=== PATIENT | female | born 1950 | race Caucasian/White ===

== ENCOUNTER 2020-01-25 11:11 | Emergency (ER) | payer SELFPAY ==
[~2020-01-25] VITALS: Ht 152.4 cm; Wt 59.0 kg
[2020-01-25] MEDS ORDERED: NITROGLYCERIN SUBLINGUAL 0.4 MG BOTTLE OF 25. SL PRN (11:30)
[2020-01-25] MEDS ORDERED: ASPIRIN 325 MG TABLET PO ONE (11:30)
[2020-01-25] MEDS ORDERED: MORPHINE SULFATE 4 MG/ML VIAL. IV/SQ PRN (11:30)
[2020-01-25] MEDS ORDERED: IV NORMAL SALINE 1000ML BAG 1,000 ML IV ONE (11:45)
[2020-01-25 11:49] LABS: BASO % 1 % (0-3); EOS % 1 % (0-3); HEMATOCRIT 36.4 % (36.0-47.0); HEMOGLOBIN 12.6 g/dL (12.0-15.5); LYMPH # 1.6 x10^3/uL (1.0-4.8); LYMPH % 33 % (24-48); MEAN CORPUSCULAR HEMOGLOBIN 33 pg (25-35); MEAN CORPUSCULAR HGB CONC 35 g/dL (31-37); MEAN CORPUSCULAR VOLUME 95 fL (79-100); MONO # 0.5 x10^3/uL (0.0-1.1); MONO % 10 % (0-9); NEUT # 2.7 x10^3/uL (1.8-7.7); NEUT % 56 % (31-73); PLATELET COUNT 338 x10^3/uL (140-400); RED BLOOD COUNT 3.83 x10^6/uL (3.50-5.40); RED CELL DISTRIBUTION WIDTH 14.2 % (11.5-14.5); WHITE BLOOD COUNT 4.9 x10^3/uL (4.0-11.0)
[2020-01-25 11:55] LABS: PROTHROMBIN TIME PATIENT 13.5 SEC (11.7-14.0)
--- NOTE | 2020-01-25 11:55 | RAD ---
EXAM: CT HEAD WITHOUT CONTRAST. HISTORY: Altered mental status. TECHNIQUE: Computed tomography of the head was performed without intravenous contrast. One or more of the following individualized dose reduction techniques were utilized for this examination: 1. Automated exposure control. 2. Adjustment of the mA and/or kV according to patient size. 3. Use of iterative reconstruction technique. COMPARISON: None. FINDINGS: There is no intracranial hemorrhage. Hypoattenuation within the white matter indicates moderate chronic microangiopathic change. The ventricles are normal in size and position. The visualized paranasal sinuses appear clear. The orbits are unremarkable. The temporal bones are unremarkable. The calvarium reveals no suspicious lesions. IMPRESSION: 1. No acute intracranial findings. 2. Moderate chronic microangiopathic white matter change. Electronically signed by: Oralia Vizcarra MD (01/25/2020 11:52 AM) [id number]
[2020-01-25 11:58] LABS: CALCIUM 8.1 mg/dL (8.5-10.1); CREATININE 1.1 mg/dL (0.6-1.0); GFR 49.4; POTASSIUM 3.4 mmol/L (3.5-5.1)
[2020-01-25 12:04] LABS: ALBUMIN 2.9 g/dL (3.4-5.0); ALBUMIN/GLOBULIN RATIO 0.8 (1.0-1.7); MAGNESIUM 1.5 mg/dL (1.8-2.4); TOTAL BILIRUBIN 0.4 mg/dL (0.2-1.0); TOTAL PROTEIN 6.5 g/dL (6.4-8.2)
[2020-01-25 12:13] LABS: CREATINE KINASE 38 U/L (26-192)
--- NOTE | 2020-01-25 12:26 | PHYS DOC ---
Past Medical History Past Medical History: COPD Past Surgical History: Appendectomy Smoking Status: Current Every Day Smoker Alcohol Use: None Drug Use: None General Adult EDM: Chief Complaint: CHEST PAIN HPI: HPI: Patient is a 69 year old female current smoker with history of COPD who presents to the ED today with multiple complaints. Patient is a very poor historian. I got report from the RN who states patient's family specifically daughter reported patient has been leaning towards her left side for unknown period of time. Patient reports this is her normal way of ambulation and there is nothing new about it. Patient also states she has had multiple falls and has chronic low back pain currently rated at 8 out of 10 described as throbbing and intermittent. Denies anything specifically relieving the pain but states palpating the low back exacerbates the pain. Denies any pain radiating to bilateral lower extremities. Denies any loss of bowel/bladder function. Patient also reports she has a dry cough and decreased appetite. Patient denies any chest pain or shortness of breath. Review of Systems: Review of Systems: Constitutional: Reports decreased appetite. Denies fever or chills. [] Eyes: Denies change in visual acuity. [] HENT: Denies nasal congestion or sore throat. [] Respiratory: Reports cough, denies shortness of breath. [] Cardiovascular: Denies chest pain or edema. [] GI: Denies abdominal pain, nausea, vomiting, bloody stools or diarrhea. [] : Denies dysuria. [] Musculoskeletal: Reports back pain Integument: Denies rash. [] Neurologic: Reports leaning to the left. Denies headache, focal weakness or sensory changes. [] Endocrine: Denies polyuria or polydipsia. [] Lymphatic: Denies swollen glands. [] Psychiatric: Denies depression or anxiety. [] Heart Score: Risk Factors: Risk Factors: DM, Current or recent (<one month) smoker, HTN, HLP, family history of CAD, obesity. Risk Scores: Score 0 - 3: 2.5% MACE over next 6 weeks - Discharge Home Score 4 - 6: 20.3% MACE over next 6 weeks - Admit for Clinical Observation Score 7 - 10: 72.7% MACE over next 6 weeks - Early Invasive Strategies Current Medications: Current Medications Medications (Trade) Dose Ordered Sig/[place] Start Time Stop Time Status Last Admin Dose Admin Aspirin (Raisa Aspirin) 325 mg 1X ONCE 01/25/20 11:30 01/25/20 11:34 DC Morphine Sulfate (Morphine Sulfate) 4 mg PRN Q15MIN PRN 01/25/20 11:30 01/26/20 11:29 Nitroglycerin (Nitrostat) 0.4 mg PRN Q5MIN PRN 01/25/20 11:30 01/26/20 11:29 Sodium Chloride 1,000 ml @ 1,000 mls/hr 1X ONCE 01/25/20 11:45 01/25/20 12:44 Allergies: Allergies: Allergies Coded Allergies Type Severity Reaction Last Updated Verified No Known Drug Allergies 10/10/14 No Physical Exam: PE: Constitutional: Well developed, well nourished, no acute distress, non-toxic appearance. [] HENT: Normocephalic, atraumatic, bilateral external ears normal, oropharynx moist, no oral exudates, nose normal. [] Eyes: PERRLA, EOMI, conjunctiva normal, no discharge. [] Neck: Normal range of motion, no tenderness, supple, no stridor. [] Cardiovascular:Heart rate regular rhythm, no murmur [] Lungs & Thorax: Bilateral breath sounds clear to auscultation [] Abdomen: Bowel sounds normal, soft, no tenderness, no masses, no pulsatile masses. [] Skin: Jaundice appearing skin. Warm, dry, no erythema, no rash. [] Back: No tenderness, no CVA tenderness. [] Extremities: mild bilateral lumbar tenderness no midline lumbar spine tenderness, no cyanosis, no clubbing, ROM intact, no edema. [] Neurologic: Alert and oriented X 3, normal motor function, normal sensory function, no focal deficits noted. [] Psychologic: Affect normal, judgement normal, mood normal. [] Current Patient Data: Labs: Laboratory Tests Test 01/25/20 11:32 White Blood Count 4.9 x10^3/uL (4.0-11.0) Red Blood Count 3.83 x10^6/uL (3.50-5.40) Hemoglobin 12.6 g/dL (12.0-15.5) Hematocrit 36.4 % (36.0-47.0) Mean Corpuscular Volume 95 fL (79-100) Mean Corpuscular Hemoglobin 33 pg (25-35) Mean Corpuscular Hemoglobin Concent 35 g/dL (31-37) Red Cell Distribution Width 14.2 % (11.5-14.5) Platelet Count 338 x10^3/uL (140-400) Neutrophils (%) (Auto) 56 % (31-73) Lymphocytes (%) (Auto) 33 % (24-48) Monocytes (%) (Auto) 10 % (0-9) H Eosinophils (%) (Auto) 1 % (0-3) Basophils (%) (Auto) 1 % (0-3) Neutrophils # (Auto) 2.7 x10^3/uL (1.8-7.7) Lymphocytes # (Auto) 1.6 x10^3/uL (1.0-4.8) Monocytes # (Auto) 0.5 x10^3/uL (0.0-1.1) Eosinophils # (Auto) 0.0 x10^3/uL (0.0-0.7) Basophils # (Auto) 0.0 x10^3/uL (0.0-0.2) Prothrombin Time 13.5 SEC (11.7-14.0) Prothrombin Time INR 1.1 (0.8-1.1) Sodium Level 131 mmol/L (136-145) L Potassium Level 3.4 mmol/L (3.5-5.1) L Chloride Level 97 mmol/L (98-107) L Carbon Dioxide Level 24 mmol/L (21-32) Anion Gap 10 (6-14) Blood Urea Nitrogen 7 mg/dL (7-20) Creatinine 1.1 mg/dL (0.6-1.0) H Estimated GFR (Cockcroft-Gault) 49.4 BUN/Creatinine Ratio 6 (6-20) Glucose Level 111 mg/dL (70-99) H Calcium Level 8.1 mg/dL (8.5-10.1) L Magnesium Level 1.5 mg/dL (1.8-2.4) L Total Bilirubin 0.4 mg/dL (0.2-1.0) Aspartate Amino Transferase (AST) 17 U/L (15-37) Alanine Aminotransferase (ALT) 23 U/L (14-59) Alkaline Phosphatase 130 U/L (46-116) H Creatine Kinase 38 U/L (26-192) Creatine Kinase MB (Mass) 1.9 ng/mL (0.0-3.6) Creatine Kinase MB Relative Index % (0-4) Troponin I Quantitative < 0.017 ng/mL (0.000-0.055) FU-Gzc-C-Type Natriuretic Peptide 375 pg/mL (0-124) H Total Protein 6.5 g/dL (6.4-8.2) Albumin 2.9 g/dL (3.4-5.0) L Albumin/Globulin Ratio 0.8 (1.0-1.7) L Thyroid Stimulating Hormone (TSH) 0.038 uIU/mL (0.358-3.74) L Laboratory Tests 01/25/20 11:32 Laboratory Tests 01/25/20 11:32 Vital Signs: Vital Signs Date Time Temp Pulse Resp B/P (MAP) Pulse Ox O2 Delivery O2 Flow Rate FiO2 01/25/20 11:13 98.4 112 20 109/62 (78) 99 Room Air 98.4 EKG: EKG: [] Radiology/Procedures: Radiology/Procedures: []PROCEDURE: CT HEAD WO CONTRAST EXAM: CT HEAD WITHOUT CONTRAST. HISTORY: Altered mental status. TECHNIQUE: Computed tomography of the head was performed without intravenous contrast. One or more of the following individualized dose reduction techniques were utilized for this examination: 1. Automated exposure control. 2. Adjustment of the mA and/or kV according to patient size. 3. Use of iterative reconstruction technique. COMPARISON: None. FINDINGS: There is no intracranial hemorrhage. Hypoattenuation within the white matter indicates moderate chronic microangiopathic change. The ventricles are normal in size and position. The visualized paranasal sinuses appear clear. The orbits are unremarkable. The temporal bones are unremarkable. The calvarium reveals no suspicious lesions. IMPRESSION: 1. No acute intracranial findings. 2. Moderate chronic microangiopathic white matter change. Electronically signed by: Oralia Vizcarra MD (01/25/2020 11:52 AM) [id number] DICTATED and SIGNED BY: USMAN VIZCARRA MD DATE: 01/25/20 1152 1. CHEST ONE VIEW. 2. LUMBAR SPINE 3 VIEWS. HISTORY: Chest and low back pain. Fall. COMPARISON: None. FINDINGS: There are no confluent infiltrates. There are calcified granulomas bilaterally. There is no pneumothorax or pleural effusion. The heart is not enlarged. Calcified lymph nodes likely reflect old granulomatous disease. A mild superior plate compression deformity at L2 results in 20% loss of anterior vertebral body height. This is age indeterminate but is most likely chronic. Mild wedging at the superior plate of T12 is likely developmental. Osteopenia appears moderate. Intervertebral disc heights are maintained. Facet osteoarthritis is at least mild from L4 through S1. IMPRESSION: 1. No confluent infiltrates. 2. A mild superior endplate compression deformity at L2 is most likely chronic. Correlate for focal tenderness to differentiate. Electronically signed by: Oralia Vizcarra MD (01/25/2020 12:55 PM) [id number] DICTATED and SIGNED BY: USMAN VIZCARRA MD DATE: 01/25/20 0031 Course & Med Decision Making: Course & Med Decision Making Pertinent Labs and Imaging studies reviewed. (See chart for details) This is a 69-year-old female patient presenting to the ED today from home with reports of leaning towards the left side when she ambulates. Patient denies this being something new but family reported is a new finding but has been going on for more than 3 days. Patient herself reports low back pain and multiple falls. She also reports decreased appetite and a cough. Chest x-ray interpreted by radiologist is negative for any acute findings, CT of the head is negative. Lumbar spine x-rays interpreted by radiologist were noted for chronic L2 endplate compression fracture. Labs are negative for any significant acute findings. I spoke to patient and daughter who are present in the room at discharge. Daughter was requesting patient to be admitted. Patient herself is refusing to be admitted. She states she will walk out and go to her own apartment if we want to keep her. Patient is also requesting to go outside and smoke. Informed patient this is a non-smoking facility. Patient states she has an appointment with her PCP tomorrow. Requested daughter to follow-up on this appointment considering daughter was stating patient has been saying she has an appointment every day. Patient is alert oriented and answering orientation questions appropriately. She was provided return precautions and discharged in stable condition. Maryon Disclaimer: [place] Disclaimer: This electronic medical record was generated, in whole or in part, using a voice recognition dictation system. Departure Departure Impression: Primary Impression: Fall Qualified Codes: W19.XXXA - Unspecified fall, initial encounter Additional Impressions: Back pain Qualified Codes: M54.5 - Low back pain; G89.29 - Other chronic pain Compression fracture of L2 lumbar vertebra Qualified Codes: S32.020A - Wedge compression fracture of second lumbar vertebra, initial encounter for closed fracture Smoking addiction Disposition: 01 HOME, SELF-CARE Condition: STABLE Referrals: HAI GALAVIZ MD (PCP) follow up as soon as possible SABINO THAYER MD follow up in 1 week Patient Instructions: Back, Compression Fracture, Cough, Adult, [id number], Fall Prevention and Home Safety Additional Instructions: You were evaluated in the emergency room, your CAT scan of the head is negative for any acute findings. Your back x-ray shows you have a chronic L2 fracture. We provided you a neurosurgeon, follow-up with them in 1 to 2 weeks. Also follow-up with your own primary care doctor. Scripts Cyclobenzaprine Hcl (CYCLOBENZAPRINE HCL) 10 Mg Tablet 1 TAB PO TID, #30 TAB Prov: CHEYENNE MC APRN 01/25/20 Justicifation of Admission Dx: Justifications for Admission: Justification of Admission Dx: N/A CHEYENNE MC APRN Jan 25, 2020 12:26
[2020-01-25 12:27] LABS: C-REACTIVE PROTEIN 0.6 mg/L (0-3.3)
--- NOTE | 2020-01-25 12:58 | RAD ---
EXAM: 1. CHEST ONE VIEW. 2. LUMBAR SPINE 3 VIEWS. HISTORY: Chest and low back pain. Fall. COMPARISON: None. FINDINGS: There are no confluent infiltrates. There are calcified granulomas bilaterally. There is no pneumothorax or pleural effusion. The heart is not enlarged. Calcified lymph nodes likely reflect old granulomatous disease. A mild superior plate compression deformity at L2 results in 20% loss of anterior vertebral body height. This is age indeterminate but is most likely chronic. Mild wedging at the superior plate of T12 is likely developmental. Osteopenia appears moderate. Intervertebral disc heights are maintained. Facet osteoarthritis is at least mild from L4 through S1. IMPRESSION: 1. No confluent infiltrates. 2. A mild superior endplate compression deformity at L2 is most likely chronic. Correlate for focal tenderness to differentiate. Electronically signed by: Oralia Vizcarra MD (01/25/2020 12:55 PM) [id number]
[2020-01-25 13:25] LABS: BILIRUBIN,URINE NEGATIVE (NEG); CLARITY,URINE CLEAR; COLOR,URINE YELLOW; NITRITE,URINE NEGATIVE (NEG); PROTEIN,URINE NEGATIVE (NEG-TRACE)
[2020-01-25 13:36] LABS: AMPHETAMINE/METHAMPHETAMINE NEG (NEG); BARBITURATES NEG (NEG); BENZODIAZEPINES NEG (NEG); CANNABINOIDS NEG (NEG); COCAINE NEG (NEG); METHADONE NEG (NEG); OPIATES POS (NEG); PHENCYCLIDINE NEG (NEG)
[2020-01-25 13:49] LABS: AMORPHOUS SEDIMENT,UR PRESENT /HPF; BACTERIA,URINE 0 /HPF (0-FEW); RBC,URINE 0 /HPF (0-2); WBC,URINE RARE /HPF (0-4)
[2020-01-25 14:20] VITALS: BP 153/61
[2020-01-25] MEDS ORDERED: CYCL10TA2 PO (14:21)
--- NOTE | 2020-01-26 07:53 | EKG ---
[facility] [address] [place] [address] Test Date: 2020-01-25 Test Time: 11:18:37 Pat Name: HIRA CALLOWAY Department: Room: Gender: F Pipe Inspector: : 1950 Requested By: CHEYENNE MC Order Number: [id number] Reading MD: Measurements Intervals [place] Rate: 118 P: 58 WA: 146 QRS: 39 QRSD: 84 T: 69 QT: 310 QTc: 437 Interpretive Statements SINUS TACHYCARDIA NO SPECIFIC ECG ABNORMALITIES RI6.02 No previous ECG available for comparison
== END 2020-01-25 14:28 | disposition home or self-care (01) ==
LOC: ER 11:11
DX: S32.020A Wedge compression fracture of second lumbar vertebra, initial encounter for closed fracture (principal); G89.29 Other chronic pain; M54.5 Low back pain; R05 Cough; J44.9 Chronic obstructive pulmonary disease, unspecified; F17.200 Nicotine dependence, unspecified, uncomplicated; Z90.89 Acquired absence of other organs; W18.39XA Other fall on same level, initial encounter; Y93.89 Activity, other specified; Y92.89 Other specified places as the place of occurrence of the external cause; Y99.8 Other external cause status
CPT/HCPCS: 36415; 70450; 71045; 72100; 80053; 80307; 81001; 82553; 82728; 83605; 83690; 83735; 83880; 84145; 84443; 84484; 85025; 85610; 86140; 93005; 96361; 96374; 99285; J2270; J7030

== ENCOUNTER 2020-04-13 10:51 | Emergency (ER) | payer MEDICARE, OTHER ==
[~2020-04-13] VITALS: Ht 157.5 cm; Wt 45.0 kg
[~2020-04-13 10:51] MED LIST: ALEN70TA60 PO; APIX5TAB PO; CYCL10TA2 PO; MIRT-36 PO; PANT40TA77 PO; QUET400T4 PO
--- NOTE | 2020-04-13 12:56 | PHYS DOC ---
Past Medical History Past Medical History: COPD, GERD, Other Additional Past Medical Histor: OSTEOPOROSIS Past Surgical History: Appendectomy Smoking Status: Current Every Day Smoker Alcohol Use: None Drug Use: None General Adult EDM: Chief Complaint: LOWER EXTREMITY SWELLING HPI: HPI: History obtained from patient. Patient is a 70-year-old female with recent diagnosis of pulmonary embolism who presents with chief complaint of bilateral foot and ankle swelling. She notes that the swelling has been present since she left the hospital 2 weeks ago AGAINST MEDICAL ADVICE. States she left because they would not let her eat food. She notes that her daughter encouraged her to come to the emergency department so she acquiesced. She denies any fevers. Does note a mild dry cough. Denies any orthopnea or bendopnea. Has been taking Eliquis daily without missed doses. Does note she has follow-up point with her primary care doctor in 2 days. Denies chest pain. Does report good urinary output. Denies abdominal pain. Denies history of heart failure. States these foot swelling has not gotten neither better nor worse. Denies syncope. No other complaints. Review of Systems: Review of Systems: Constitutional: Denies fever or chills. [] Eyes: Denies change in visual acuity. [] HENT: Denies nasal congestion or sore throat. [] Respiratory: Denies cough or shortness of breath. [] Cardiovascular: Positive for edema GI: Denies abdominal pain, nausea, vomiting, bloody stools or diarrhea. [] : Denies dysuria. [] Musculoskeletal: Denies back pain or joint pain. [] Integument: Denies rash. [] Neurologic: Denies headache, focal weakness or sensory changes. [] Endocrine: Denies polyuria or polydipsia. [] Lymphatic: Denies swollen glands. [] Psychiatric: Denies depression or anxiety. [] Heart Score: Risk Factors: Risk Factors: DM, Current or recent (<one month) smoker, HTN, HLP, family history of CAD, obesity. Risk Scores: Score 0 - 3: 2.5% MACE over next 6 weeks - Discharge Home Score 4 - 6: 20.3% MACE over next 6 weeks - Admit for Clinical Observation Score 7 - 10: 72.7% MACE over next 6 weeks - Early Invasive Strategies Allergies: Allergies: Allergies Coded Allergies Type Severity Reaction Last Updated Verified No Known Drug Allergies 03/22/20 No Physical Exam: PE: Constitutional: Well developed, well nourished, no acute distress, non-toxic appearance. [] HENT: Normocephalic, atraumatic, bilateral external ears normal, oropharynx moist, no oral exudates, nose normal. [] Eyes: PERRLA, EOMI, conjunctiva normal, no discharge. [] Neck: Normal range of motion, no tenderness, supple, no stridor. [] Cardiovascular: +1-4 pitting edema in the lower extremities bilaterally. Lungs & Thorax: Bilateral breath sounds clear to auscultation [] Abdomen: soft, no tenderness, no masses, no pulsatile masses. [] Skin: Warm, dry, no erythema, no rash. [] Back: No tenderness, no CVA tenderness. [] Extremities: No tenderness, no cyanosis, no clubbing, ROM intact, no edema. [] Neurologic: Alert and oriented X 3, normal motor function, normal sensory function, no focal deficits noted. [] Psychologic: Affect normal, judgement normal, mood normal. [] Current Patient Data: Labs: Laboratory Tests Test 04/13/20 13:03 04/13/20 13:27 White Blood Count 4.5 x10^3/uL Red Blood Count 3.16 x10^6/uL Hemoglobin 11.0 g/dL Hematocrit 32.4 % Mean Corpuscular Volume 103 fL Mean Corpuscular Hemoglobin 35 pg Mean Corpuscular Hemoglobin Concent 34 g/dL Red Cell Distribution Width 17.0 % Platelet Count 343 x10^3/uL Neutrophils (%) (Auto) 56 % Lymphocytes (%) (Auto) 36 % Monocytes (%) (Auto) 7 % Eosinophils (%) (Auto) 0 % Basophils (%) (Auto) 1 % Neutrophils # (Auto) 2.5 x10^3/uL Lymphocytes # (Auto) 1.6 x10^3/uL Monocytes # (Auto) 0.3 x10^3/uL Eosinophils # (Auto) 0.0 x10^3/uL Basophils # (Auto) 0.0 x10^3/uL Sodium Level 128 mmol/L Potassium Level 4.2 mmol/L Chloride Level 95 mmol/L Carbon Dioxide Level 27 mmol/L Anion Gap 6 Blood Urea Nitrogen 6 mg/dL Creatinine 0.5 mg/dL Estimated GFR (Cockcroft-Gault) 122.3 Glucose Level 98 mg/dL Calcium Level 8.5 mg/dL HL-Vnu-Q-Type Natriuretic Peptide 2202 pg/mL Urine Collection Type Unknown Urine Color Straw Urine Clarity Clear Urine pH 7.5 Urine Specific [place] <=1.005 Urine Protein Negative mg/dL Urine Glucose (UA) Negative mg/dL Urine Ketones (Stick) Negative mg/dL Urine Blood Negative Urine Nitrite Negative Urine Bilirubin Negative Urine Urobilinogen Dipstick 0.2 mg/dL Urine Leukocyte Esterase Negative Urine RBC Rare /HPF Urine WBC Rare /HPF Urine Squamous Epithelial Cells Few /LPF Urine Bacteria 0 /HPF Vital Signs: Vital Signs Date Time Temp Pulse Resp B/P (MAP) Pulse Ox O2 Delivery O2 Flow Rate FiO2 04/13/20 12:45 98.1 110 20 209/90 (129) 99 Room Air 98.1 EKG: EKG: EKG consistent with sinus tachycardia. Ventricular rate of 104 bpm. Slight left axis noted. Left atrial enlargement appreciated. No acute ischemic changes noted. [] Radiology/Procedures: Radiology/Procedures: [facility] [address] [place] [address] IMAGING REPORT Signed PATIENT: HIRA CALLOWAY ACCOUNT: [id number] : 1950 LOCATION: ER AGE: 70 SEX: F EXAM STATUS: REG ER ORD. PHYSICIAN: TANK TRISTAN DO REASON: LE swelling PROCEDURE: CHEST AP ONLY EXAM: Chest, single view. HISTORY: Swelling. COMPARISON: 01/25/2020 FINDINGS: A frontal view of the chest is obtained. There is no infiltrate, pleural effusion or pneumothorax. There is a stable cardiac silhouette. There are multiple calcified granulomas. IMPRESSION: No acute pulmonary finding. Electronically signed by: Daina Sam MD (04/13/2020 12:55 PM) [id number] DICTATED and SIGNED BY: DANIA SAM MD DATE: 04/13/20 1255 [] Course & Med Decision Making: Course & Med Decision Making Pertinent Labs and Imaging studies reviewed. (See chart for details) [] Patient is a [age]-year-old female who presents with chief complaint of bilateral lower extremity swelling. She knows she is really diagnosed with bilateral pulmonary emboli. She did leave the hospital that time AGAINST MEDICAL ADVICE. Repeat labs today do show elevation of proBNP from baseline. No recent echo on file. Lower extremity Dopplers negative for DVT. Remainder of labs unremarkable. I did recommend hospitalization for echocardiogram for further evaluation of her heart function. At this time she is declining would like to leave AGAINST MEDICAL ADVICE. I did explain that we cannot fully exclude life or limb threat without this test. Patient did express understanding. She is alert and oriented x3. Patient clinically sober. Does appear to have basic understanding of her health care needs and potential consequences. She does have an appoint with her primary care doctor in 2 days. I highly encouraged her to keep this appointment. I encouraged her to report back to the emergency department anytime should she want to be reevaluated. She continues to deny any chest pain. Will be leaving AGAINST MEDICAL ADVICE at this time [place]in Disclaimer: [place] Disclaimer: This electronic medical record was generated, in whole or in part, using a voice recognition dictation system. Departure Departure Impression: Primary Impression: Pulmonary emboli Qualified Codes: I27.82 - Chronic pulmonary embolism Additional Impression: Elevated brain natriuretic peptide (BNP) level Disposition: 07 AMA/ELOPED/LWBS Condition: STABLE Referrals: ULI DAVIS MD (PCP) Patient Instructions: Pulmonary Embolus Additional Instructions: Please follow-up with your primary care physician in 2 days at your regularly scheduled appointment. Please return emergency department anytime should he want to be reevaluated. TANK TRISTAN DO Apr 13, 2020 12:56
[2020-04-13 13:14] LABS: BASO % 1 % (0-3); EOS % 0 % (0-3); HEMATOCRIT 32.4 % (36.0-47.0); LYMPH # 1.6 x10^3/uL (1.0-4.8); LYMPH % 36 % (24-48); MEAN CORPUSCULAR HEMOGLOBIN 35 pg (25-35); MEAN CORPUSCULAR HGB CONC 34 g/dL (31-37); MEAN CORPUSCULAR VOLUME 103 fL (79-100); MONO # 0.3 x10^3/uL (0.0-1.1); MONO % 7 % (0-9); NEUT # 2.5 x10^3/uL (1.8-7.7); NEUT % 56 % (31-73); PLATELET COUNT 343 x10^3/uL (140-400); RED BLOOD COUNT 3.16 x10^6/uL (3.50-5.40); WHITE BLOOD COUNT 4.5 x10^3/uL (4.0-11.0)
[2020-04-13 13:23] LABS: CALCIUM 8.5 mg/dL (8.5-10.1); CREATININE 0.5 mg/dL (0.6-1.0); GFR 122.3; POTASSIUM 4.2 mmol/L (3.5-5.1)
--- NOTE | 2020-04-13 13:48 | NUR ---
Radha RN notified of patient's elevated blood pressure.
[2020-04-13 13:58] LABS: BILIRUBIN,URINE NEGATIVE (NEG); CLARITY,URINE CLEAR; NITRITE,URINE NEGATIVE (NEG); PH,URINE 7.5 (<5.0-8.0); PROTEIN,URINE NEGATIVE (NEG-TRACE); UROBILINOGEN,URINE 0.2 mg/dL (0.2 mg/dL)
--- NOTE | 2020-04-13 14:01 | RAD ---
EXAM: Bilateral lower extremity venous Doppler sonogram. HISTORY: Pain and swelling. TECHNIQUE: Rodrigez scale and color Doppler sonographic evaluation of the bilateral lower extremity veins with spectral waveform analysis was performed. FINDINGS: There is normal color flow, normal compressibility and there are normal spectral waveforms in the common femoral, superficial femoral, popliteal, posterior tibial and greater saphenous veins. IMPRESSION: No Doppler evidence of lower extremity deep venous thrombosis. Electronically signed by: Dania Faith MD (04/13/2020 1:58 PM) [id number]
[2020-04-13 14:11] LABS: COLOR,URINE STRAW
[2020-04-13 14:12] LABS: RBC,URINE RARE /HPF (0-2); WBC,URINE RARE /HPF (0-4)
[2020-04-13 14:13] LABS: BACTERIA,URINE 0 /HPF (0-FEW)
[2020-04-13 14:55] VITALS: BP 181/88
--- NOTE | 2020-04-13 18:18 | EKG ---
[facility] [address] [place] [address] Test Date: 2020-04-13 Test Time: 12:52:28 Pat Name: HIRA CALLOWAY Department: Room: Gender: F Electrical Intern: [place] : 1950 Requested By: TANK TRISTAN Order Number: [id number] Reading MD: Measurements Intervals [place] Rate: 103 P: 55 OK: 134 QRS: 23 QRSD: 70 T: 42 QT: 326 QTc: 429 Interpretive Statements SINUS TACHYCARDIA LEFT ATRIAL ABNORMALITY QRS(T) CONTOUR ABNORMALITY CONSIDER ANTEROLATERAL MYOCARDIAL DAMAGE ABNORMAL ECG RI6.01 No previous ECG available for comparison
== END 2020-04-13 15:23 | disposition left against medical advice (07) ==
LOC: ER 10:51
DX: I27.82 Chronic pulmonary embolism (principal); R79.89 Other specified abnormal findings of blood chemistry; R60.0 Localized edema; J44.9 Chronic obstructive pulmonary disease, unspecified; K21.9 Gastro-esophageal reflux disease without esophagitis; F17.200 Nicotine dependence, unspecified, uncomplicated; Z90.89 Acquired absence of other organs
CPT/HCPCS: 36415; 71045; 80048; 81001; 83880; 85025; 93005; 93970; 99285